=== PATIENT | female | born 1965 | race Caucasian/White ===

== ENCOUNTER 2023-01-04 06:47 | Outpatient (CLI) | payer OTHER, SELFPAY ==
[2023-01-04 07:15] LABS: Basophils Absolute Auto 0.1 K/mm3 (0.0-0.1); Basophils Percent Auto 0.7 % (0.2-1.2); Eosinophils Absolute Auto 0.3 K/mm3 (0-0.3); Eosinophils Percent Auto 2.8 % (0-4.4); Hematocrit 43.3 % (37.0-47.0); Hemoglobin 13.6 g/dL (12.0-15.0); Immature Granulocyte Absolute 0.08 K/mm3 (0.00-0.031); Immature Granulocyte Percent A 0.8 % (0-0.5); Lymphocytes Absolute Auto 2.87 K/mm3 (0.9-3.2); Lymphocytes Percent Auto 30.3 % (18.3-44.2); Mean Corpuscular HGB Conc 31.4 g/dl (32-36); Mean Corpuscular Hemoglobin 28.5 pg (26-34); Mean Corpuscular Volume 90.8 fl (80-100); Mean Platelet Volume 8.9 fl (7.4-10.4); Monocytes Absolute Auto 0.8 K/mm3 (0.1-0.6); Monocytes Percent Auto 8.9 % (2.6-8.5); Neutrophils Absolute Auto 5.4 K/mm3 (1.3-6.7); Neutrophils Percent Auto 56.5 % (45.5-73.1); Platelet Count Result 311 k/mm3 (150-375); Red Blood Count 4.77 M/mm3 (4.2-5.4); Red Cell Distribution Width 13.7 % (11.5-14.5); White Blood Count 9.5 K/mm3 (4.5-10.0)
[2023-01-04 07:16] LABS: Appearance Urine Clear (Clear); Bilirubin Urine Negative (Negative); Blood Urine Negative (Negative); Color Urine Yellow (Yellow); Glucose Urine UA Negative (Negative); Ketones Urine Negative (Negative); Leukocyte Esterase Ur Negative LEU/UL (Negative); Nitrate Urine Negative (Negative); Protein Urine Negative (Negative); Specific Grav Ur 1.011 (1.001-1.035); Urobilinogen Urine 0.2 mg/dL (<2.0); pH Urine 5.5 (5.0-9.0)
[2023-01-04 07:27] LABS: Alanine Aminotransferase 23 U/L (6-35); Albumin Level 4.3 g/dL (3.5-5.1); Alkaline Phosphatase 71 U/L (38-126); Anion Gap 8 mmol/L (8-16); Aspartate Amino Transferase 23 U/L (14-36); Bilirubin,Total 0.6 mg/dL (0.2-1.3); Blood Urea Nitrogen 13 mg/dL (7-17); Calcium 9.5 mg/dL (8.4-10.2); Carbon Dioxide 26 mmol/L (22-30); Chloride 105 mmol/L (98-107); Cholesterol 209 mg/dL (0-200); Estimated Glomerular Filt Rate > 60; Glucose 108 mg/dL (65-110); HDL Direct 44 mg/dL; Hemoglobin A1C 5.8 % (<5.7); Potassium 4.2 mmol/L (3.4-5.0); Sodium 139 mmol/L (137-145); Triglycerides 363 mg/dL (<150)
[2023-01-04 07:38] LABS: LDL Cholesterol Direct 98 mg/dL
[2023-01-04 07:44] LABS: Add Urine Microscopic? NO
[2023-01-04 08:30] LABS: Folic Acid 16.2 ng/mL (2.76->20)
== END 2023-01-04 06:48 | disposition home or self-care (01) ==
PROVIDERS: Visit Provider Physician Assistant
DX: E78.5 Hyperlipidemia, unspecified (principal); R73.03 Prediabetes; Z79.899 Other long term (current) drug therapy
CPT/HCPCS: 36415; 80053; 80061; 81003; 82607; 82746; 83036; 84443; 85025

== ENCOUNTER 2023-05-12 07:34 | Outpatient (CLI) | payer OTHER, SELFPAY ==
[2023-05-12 08:20] LABS: Basophils Absolute Auto 0.1 K/mm3 (0.0-0.1); Basophils Percent Auto 0.7 % (0.2-1.2); Eosinophils Absolute Auto 0.2 K/mm3 (0-0.3); Eosinophils Percent Auto 2.7 % (0-4.4); Hemoglobin 14.1 g/dL (12.0-15.0); Immature Granulocyte Absolute 0.07 K/mm3 (0.00-0.031); Immature Granulocyte Percent A 0.9 % (0-0.5); Lymphocytes Absolute Auto 2.14 K/mm3 (0.9-3.2); Lymphocytes Percent Auto 26.7 % (18.3-44.2); Mean Corpuscular HGB Conc 30.7 g/dl (32-36); Mean Corpuscular Hemoglobin 27.8 pg (26-34); Mean Corpuscular Volume 90.6 fl (80-100); Mean Platelet Volume 9.6 fl (7.4-10.4); Monocytes Absolute Auto 0.8 K/mm3 (0.1-0.6); Monocytes Percent Auto 9.5 % (2.6-8.5); Neutrophils Absolute Auto 4.8 K/mm3 (1.3-6.7); Neutrophils Percent Auto 59.5 % (45.5-73.1); Platelet Count Result 315 k/mm3 (150-375); Red Blood Count 5.08 M/mm3 (4.2-5.4); Red Cell Distribution Width 13.5 % (11.5-14.5)
[2023-05-12 08:29] LABS: Alanine Aminotransferase 23 U/L (6-35); Albumin Level 4.1 g/dL (3.5-5.1); Alkaline Phosphatase 92 U/L (38-126); Anion Gap 6 mmol/L (8-16); Aspartate Amino Transferase 24 U/L (14-36); Bilirubin,Total 0.4 mg/dL (0.2-1.3); Blood Urea Nitrogen 12 mg/dL (7-17); Calcium 9.6 mg/dL (8.4-10.2); Carbon Dioxide 26 mmol/L (22-30); Chloride 109 mmol/L (98-107); Cholesterol 252 mg/dL (0-200); Estimated Glomerular Filt Rate > 60; Glucose 104 mg/dL (65-110); HDL Direct 48 mg/dL; Potassium 4.3 mmol/L (3.4-5.0); Sodium 141 mmol/L (137-145); Triglycerides 256 mg/dL (<150)
[2023-05-12 08:43] LABS: LDL Cholesterol Direct 154 mg/dL
[2023-05-12 09:07] LABS: Hemoglobin A1C 6.1 % (<5.7)
[2023-05-12 09:38] LABS: Folic Acid 12.7 ng/mL (2.76->20)
== END 2023-05-12 07:35 | disposition home or self-care (01) ==
LOC: ANHLAB 07:37
PROVIDERS: PCP Physician Assistant; Visit Provider Physician Assistant
DX: E78.5 Hyperlipidemia, unspecified (principal); R73.03 Prediabetes; Z79.899 Other long term (current) drug therapy
CPT/HCPCS: 36415; 80053; 80061; 82607; 82746; 83036; 84439; 84443; 85025

== ENCOUNTER 2023-08-05 16:35 | Emergency (ER) | payer OTHER, SELFPAY ==
--- NOTE | ~2023-08-05 | XR_ITS ---
XR hand RT min 3V Ordering provider: Eddie Grant PA-C History: . 3rd MCP pain and swelling TO DORSAL 2ND, 3RD, AND 4TH . Comparison: None. FINDINGS: BONES: No acute fracture or dislocation. Small cystic area seen in the proximal metaphysis of the proximal phalanx of the second finger. Follo w-up advised. JOINT SPACES: Normal. SOFT TISSUES: Normal. IMPRESSION: No acute osseous abnormality right hand. Reviewed, dictated and finalized at location A.
[2023-08-05 17:12] VITALS: BP 124/75; PULSE 90; RESP 16; TEMP 36.1; O2SAT 97
--- NOTE | 2023-08-05 18:04 | ED.GENADULT ---
[facility] - General Adult General Chief complaint: Extremity Injury, Upper Stated complaint: hand/wrist injury Time Seen by Provider: 08/05/23 17:05 Source: patient Mode of arrival: ambulatory Limitations: no limitations History of Present Illness HPI narrative: this is a 57-year-old female who presents to the ED for chief complaint of right hand pain and swelling, specifically over the 3rd MCP. She reports that she had an injury last night In which she was trying to push herself up on the bed and injured the right hand. Patient reports swelling and pain, worse over the 3rd MCP. She has concern for the bone possibly moving. Denies numbness, weakness or any further sites of pain or injury. Related Data Home Medications Medication Instructions Recorded Confirmed cariprazine 1.5 mg capsule 3 mg PO DAILY 08/05/23 08/05/23 (Vraylar) fenofibrate micronized 134 mg 134 mg PO DAILY 08/05/23 08/05/23 capsule metformin 500 mg tablet 500 mg PO DAILY 08/05/23 08/05/23 rosuvastatin 40 mg tablet (Crestor) 40 mg PO DAILY 08/05/23 08/05/23 Allergies Allergy/AdvReac Type Severity Reaction Status Date / Time No Known Allergies Allergy Unverified 08/05/23 17:09 Review of Systems Review of Systems: All systems as dictated in [facility] Family History Family History Grandparent Acute myocardial infarction Mother Family history of hypothyroidism Father Family history of coronary artery disease Carcinoma of colon Acute myocardial infarction Social History Social History Smoking status: Current every day smoker Tobacco type: cigarettes and e-cigarettes/vaping Alcohol intake: current Substance use: never Exam Narrative: GENERAL: Well-appearing, well-nourished, and in no acute distress. HEAD: Normocephalic, atraumatic. EYES: PERRLA and EOMI. ENT: Nares clear, no rhinorrhea or epistaxis. Mucous membranes moist. Oropharynx without tonsillar hypertrophy exudate or other lesions. NECK: Supple. No adenopathy or masses. CHEST: No respiratory distress. Clear to auscultation. No wheezes rales or rhonchi HEART: Regular rate and rhythm. No murmur heard. Normal peripheral pulses. ABDOMEN: Soft, nontender, nondistended, normal active bowel sounds. MSK: Mild tenderness and swelling to the 3rd MCP dorsally. No warmth or redness. Nearly full range of motion actively. No deformity Neurovascularly intact distally. SKIN: Warm, dry, no rash. NEURO: Alert and oriented x3. No focal deficits. PSYCH: Normal mood and affect. Course Vital Signs Vital signs: Vital Signs Temperature 97.0 F L 08/05/23 17:12 Pulse Rate 90 08/05/23 17:12 Respiratory Rate 16 08/05/23 17:12 Blood Pressure 124/75 08/05/23 17:12 Pulse Oximetry 97 08/05/23 17:12 Oxygen Delivery Room Air 08/05/23 17:12 Temperature 97.2 F L 08/05/23 18:30 Pulse Rate 76 08/05/23 18:30 Respiratory Rate 16 08/05/23 18:30 Blood Pressure 135/83 08/05/23 18:30 Pulse Oximetry 97 08/05/23 18:30 Oxygen Delivery Room Air 08/05/23 17:12 Medical Decision Making MDM Narrative Medical decision making narrative: this is a 57-year-old female who presents to the ED for chief complaint of right hand pain after injury last night. Vitals are normal. Exam shows mild swelling and tenderness to the 3rd MCP. No deformity. Neurovascularly intact distally. X-ray show no acute findings. Symptoms consistent with musculoskeletal strain. Pt will be discharged in stable condition. Return precautions given and supportive measures discussed. Pt is understanding and agreeable with plan for discharge and follow-up with PCP. Vital Signs Vital Signs: Vital Signs Temperature 97.0 F L 08/05/23 17:12 Pulse Rate 90 08/05/23 17:12 Respiratory Rate 16 08/05/23 17:12 Blood Pressure 124/75 08/05/23 17:12
[2023-08-05 18:30] VITALS: BP 135/83; PULSE 76; RESP 16; TEMP 36.2; O2SAT 97
== END 2023-08-05 18:30 | disposition home or self-care (01) ==
PROVIDERS: Emergency Provider Physician Assistant; PCP Physician Assistant
DX: S66.911A Strain of unspecified muscle, fascia and tendon at wrist and hand level, right hand, initial encounter (principal); E11.9 Type 2 diabetes mellitus without complications; F41.9 Anxiety disorder, unspecified; F32.A Depression, unspecified; F17.210 Nicotine dependence, cigarettes, uncomplicated; F17.290 Nicotine dependence, other tobacco product, uncomplicated; Z79.84 Long term (current) use of oral hypoglycemic drugs; Z79.899 Other long term (current) drug therapy; X50.9XXA Other and unspecified overexertion or strenuous movements or postures, initial encounter
CPT/HCPCS: 73130; 99283

== ENCOUNTER 2023-10-16 07:05 | Outpatient (CLI) | payer OTHER, SELFPAY ==
[2023-10-16 07:29] LABS: Basophils Absolute Auto 0.1 K/mm3 (0.0-0.1); Basophils Percent Auto 0.6 % (0.2-1.2); Eosinophils Absolute Auto 0.2 K/mm3 (0-0.3); Eosinophils Percent Auto 1.6 % (0-4.4); Hematocrit 42.2 % (37.0-47.0); Hemoglobin 13.8 g/dL (12.0-15.0); Immature Granulocyte Absolute 0.05 K/mm3 (0.00-0.031); Immature Granulocyte Percent A 0.4 % (0-0.5); Lymphocytes Absolute Auto 2.88 K/mm3 (0.9-3.2); Lymphocytes Percent Auto 25.7 % (18.3-44.2); Mean Corpuscular HGB Conc 32.7 g/dl (32-36); Mean Corpuscular Volume 88.7 fl (80-100); Mean Platelet Volume 9.4 fl (7.4-10.4); Monocytes Percent Auto 9.3 % (2.6-8.5); Neutrophils Percent Auto 62.4 % (45.5-73.1); Platelet Count Result 299 k/mm3 (150-375); Red Blood Count 4.76 M/mm3 (4.2-5.4); White Blood Count 11.2 K/mm3 (4.5-10.0)
[2023-10-16 07:36] LABS: Hemoglobin A1C 6.1 % (<5.7)
[2023-10-16 07:39] LABS: Alanine Aminotransferase 25 U/L (6-35); Albumin Level 4.4 g/dL (3.5-5.1); Alkaline Phosphatase 82 U/L (38-126); Anion Gap 9 mmol/L (4-12); Aspartate Amino Transferase 27 U/L (14-36); Bilirubin,Total 0.5 mg/dL (0.2-1.3); Blood Urea Nitrogen 11 mg/dL (7-17); Calcium 9.6 mg/dL (8.4-10.2); Carbon Dioxide 27 mmol/L (22-30); Chloride 103 mmol/L (98-107); Cholesterol 169 mg/dL (0-200); Estimated Glomerular Filt Rate > 60; Glucose 99 mg/dL (65-110); HDL Direct 47 mg/dL; Potassium 3.9 mmol/L (3.4-5.0); Sodium 139 mmol/L (137-145); Triglycerides 130 mg/dL (<150)
[2023-10-16 07:51] LABS: LDL Cholesterol Direct 85 mg/dL
[2023-10-17 08:28] LABS: Insulin Level Total 13.3 uIU/mL
== END 2023-10-16 07:06 | disposition home or self-care (01) ==
PROVIDERS: PCP Physician Assistant; Visit Provider Physician Assistant
DX: E78.5 Hyperlipidemia, unspecified (principal); R73.03 Prediabetes; Z68.36 Body mass index [BMI] 36.0-36.9, adult; Z79.899 Other long term (current) drug therapy
CPT/HCPCS: 36415; 80053; 80061; 83036; 83525; 85025

== ENCOUNTER 2024-10-16 06:50 | Outpatient (CLI) | payer OTHER, SELFPAY ==
--- OUTSIDE RECORDS SUMMARY | 2024-10-16 06:55 | XMS_ITS ---
Author Organization [facility] Address [facility] [facility] [address] [place] [address] Care Team Providers [facility] [employer] Name Role Phone Amie Linares Primary Care Provider Breanna Pearson Unavailable [phone] REASON FOR VISIT 3 month f/u: R/S with Ct on 04/13/24 Social History Sex Assigned At : Social History Observation Description Sex Assigned At Female Encounters Encounter Location Date Provider Diagnosis [facility] [address] [facility] [address] [place] [address] 04/25/2024 Breanna Cali Plan Of Treatment No Information Progress Notes * KALI MAYDOB: [birth year] (58 yo F)Acc No.[id number]:04/25/2024 Patient: KLAI MCCLELLAND Provider: ELIANE BUTTERFIELD :1965 A ge:58 Y S ex:Female Date:04/25/2024 Address:[address] [place], [place] [id number] Pcp:Amie HARRELL Subjective: * Chief Complaints: * 1 . 3 month f/u: R/S with Ct on 04/13/24. * Medical History: Objective: * Vitals: Assessment: Plan: * Treatment: * Billing Information: * Visit Code: * Procedure Codes: * Electronic signature of ELIANE Mcbride on 10/16/2024 at 06:55 AM CDT Sign off status: Pending * Provider: Nini CALI PMHNP Date: 0 04/25/2024 Generated for Kwan Romeo/David on: 0 10/16/2024 06:55 AM CDT
--- OUTSIDE RECORDS SUMMARY | 2024-10-16 06:55 | XMS_ITS | Patient Health Record ---
Author Organization [facility] As rubberit Address [address] [facility] [address] [place] [address] Care Team Providers Care Investment Accountant Name Role Phone Amie Linares Primary Care Provider Breanna Pearson Unavailable [phone] Sanchez Aguilar Unavailable [phone] Allergies No Known Allergies Results Component Value Reference Range Notes UDT Reviewed date:10/26/2023 09:52:03 AM Interpretation: Performing Lab: Notes/Report: THC N 0 - 50 ng/ml Cocaine N 0 - 300 ng/ml Amphetamine N 0 - 1000 ng/ml Buprenorphine (BUP) N 0 - 10 ng/ml Secobarbital (Bar) N 0 - 300 ng/ml Oxazepam (BZO) N 0 - 300 ng/ml 6-jatpkmdpqg-5,9-jpkhfdmp-0, 3-dipheny lpyrrolidine (EDDP) N 0 - 300 ng/ml Methamphetamine (MET) N 0 - 1000 ng/ml Methylenedioxymethamphetamine (MDMA) N 0 - 500 ng/ml Morphine (MOP 300/VVY5207) N 0 - 300 ng/ml Methadone (MTD) N 0 - 300 ng/ml Phencyclidine (PCP) N 0 - 25 ng/ml Nortriptyline (TCA) N 0 - 1000 ng/ml Oxycodone N 0 - 300 ng/ml x N 0 - 300 ng/ml UDT Reviewed date:01/11/2024 05:08:37 PM Interpretation: Performing Lab: Notes/Report: THC n 0 - 50 ng/ml Cocaine n 0 - 300 ng/ml Amphetamine n 0 - 1000 ng/ml Buprenorphine (BUP) n 0 - 10 ng/ml Secobarbital (Bar) n 0 - 300 ng/ml Oxazepam (BZO) n 0 - 300 ng/ml 4-dbaajojzva-8,4-imklttxe-7, 3-dipheny lpyrrolidine (EDDP) n 0 - 300 ng/ml Methamphetamine (MET) n 0 - 1000 ng/ml Methylenedioxymethamphetamine (MDMA) n 0 - 500 ng/ml Morphine (MOP 300/NDN1226) n 0 - 300 ng/ml Methadone (MTD) n 0 - 300 ng/ml Phencyclidine (PCP) n 0 - 25 ng/ml Nortriptyline (TCA) n 0 - 1000 ng/ml Oxycodone n 0 - 300 ng/ml x n 0 - 300 ng/ml DRUG MONITOR, BENZO, QN, URI NE ([id number]) Reviewed date:11/12/2023 12:03:39 PM Interpretation: Performing Lab:[facility] [id number] [place] Rolando Wolf, Director - [id number] [facility] Notes/Report: ALL NEGATIVE FASTING: NO Alphahydroxyalprazolam NEGATIVE <25 ng/mL Alphahydroxymidazolam NEGATIVE <50 ng/mL Alphahydroxytriazolam NEGATIVE <50 ng/mL Aminoclonazepam NEGATIVE <25 ng/mL Hydroxyethylflurazepam NEGATIVE <50 ng/mL Lorazepam NEGATIVE <50 ng/mL Nordiazepam NEGATIVE <50 ng/mL Oxazepam NEGATIVE <50 ng/mL Temazepam NEGATIVE <50 ng/mL Benzodiazepines Comments See LDT Notes Notes and Comments This drug testing is for medical treatment only. Analysis was performed as non-forensic testing and these results should be used only by healthcare providers to render diagnosis or treatment, or to monitor progress of medical conditions. LDT Notes: Confirmation tests were developed and their analytical performance characteristics have been determined by [facility]. It has not been cleared or approved by the FDA. This assay has been validated pursuant to the CLIA regulations and is used for clinical purposes. Healthcare Providers needing Interpretation assistance, please contact us at [phone] ( ) M-F, 8am to 10pm EST DRUG MONITOR, BENZO, DavidBillSEAN ([id number]) Reviewed date:01/19/2024 09:57:19 AM Interpretation: Performing Lab:[facility], [facility] [id number] [facility]ector [id number] Rolando Wolf, Director - [id number] [facility] Notes/Report: FASTING: NO Alphahydroxyalprazolam NEGATIVE <25 ng/mL Alphahydroxymidazolam NEGATIVE <50 ng/mL Alphahydroxytriazolam NEGATIVE <50 ng/mL Aminoclonazepam NEGATIVE <25 ng/mL Hydroxyethylflurazepam NEGATIVE <50 ng/mL Lorazepam NEGATIVE <50 ng/mL Nordiazepam NEGATIVE <50 ng/mL Oxazepam NEGATIVE <50 ng/mL Temazepam NEGATIVE <50 ng/mL Benzodiazepines Comments See LDT Notes Notes and Comments This drug testing is for medical treatment only. Analysis was performed as non-forensic testing and these results should be used only by healthcare providers to render diagnosis or treatment, or to monitor progress of medical conditions. LDT Notes: Confirmation tests were developed and their analytical performance characteristics have been determined by [facility]. It has not been cleared or approved by the FDA. This assay has been validated pursuant to the CLIA regulations and is used for clinical purposes. Healthcare Providers needing Interpretation assistance, please contact us at [phone] ( ) M-F, 8am to 10pm EST Reason For Referral No Information Medications Medication SIG (Take, Route, Frequency, Duration) Notes Start Date End Date Status Crestor 40 MG Oral 07/15/2023 Activ e metFORMIN HCl ER 750 MG Oral 07/15/2023 Active hydrOXYzine HCl 25 MG Oral 07/15/2023 Not-Taking busPIRone HCl 7.5 MG Oral 07/15/2023 Not-Taking hydrOXYzine HCl 10 MG Oral 07/15/2023 Not-Taking LORazepam 0.5 MG 1 tablet Oral Once a day; Duration: 30 days 04/13/2024 Active Cariprazine HCl 3 MG 1 capsule Orally Once a day; Duration: 30 days Active Vraylar 3 MG 1 capsule Oral Once a day; Duration: 90 days no PA needed 11/26/2023 Active Trintellix 20 MG 1 tablet Oral Once a day; Duration: 30 days Active Rosuvastatin Calcium 20 MG Oral 07/15/2023 Active Fenofibrate Micronized 134 MG Oral 07/15/2023 Active Ondansetron 4 MG Oral 07/15/2023 Ac tive Social History Tobacco Use: Social History Observation Description Date Details (start date - stop date) Light tobacco s moker NA - NA Sex Assigned At : Social History Observation Description Sex Assigned At Female Tobacco Control (Standard) Question Answer Notes Tobacco use: Light tobacco smoker Problems Problem Type SNOMED Code ICD Code Onset Dates Problem Status W/U Status Risk Notes Problem Mild recurrent major depression (66077978) Major depressive disorder, recurrent, mild (F33.0) 3 Active confirmed Problem Generalized anxiety disorder (94770767) Generalized anxiety disorder (F41.1) 4 Active confirmed Problem Insomnia disorder related to another mental disorder (13604814) Insomnia due to other mental 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) 4 Active confirmed Problem Long-term current use of drug therapy (589226233) Other long-term (current) drug therapy (Z79.899) 4 Active confirmed Problem Elevated blood-pressure reading without diagnosis of hypertension (490874519) Elevated blood pressure reading (R03.0) Active confirmed Vital Signs Heart Rate 77 /min 01/11/2024 Height-cm 160.02 cm 01/11/2024 Blood pressure diastolic 77 mm Hg 01/11/2024 Weight-kg 83.46 kg 01/11/2024 Height 63.00 in 01/11/2024 Blood pressure systolic 131 mm Hg 01/11/2024 Weight 184 lbs 01/11/2024 BMI 32.59 kg/m2 01/11/2024 Encounters Encounter Location Date Provider Diagnosis [email or web address] [address] [facility] [address] [place] [address] 10/26/2023 Breanna Cali Major depressive disorder, recurrent, mild F33.0 ; Generalized anxiety disorder F41.1 ; Insomnia due to other mental disorder F51.05 and Other long-term (current) drug therapy Z79.899 [email or web address] [address] [facility] [address] [place] [address] 01/04/2024 Breanna Cali [facility] [employer] [address] [facility] [address] [place] [address] 01/11/2024 Breanna Thermora Generalized anxiety disorder F41.1 ; Major depressive disorder, recurrent, mild F33.0 ; Insomnia due to other mental disorder F51.05 ; Other magazine journalist (current) drug therapy Z79.899 and Elevated blood pressure reading R03.0 [facility] [address] [address] 04/13/2024 Sanchez Aguilar [place] [id number] [address] 04/13/2024 Breanna Thermora Generalized anxiety disorder F41.1 ; Major depressive disorder, recurrent, mild F33.0 ; Insomnia due to other mental disorder F51.05 and Other long-term (current) drug therapy Z79.899 [place] [address] [address] 07/11/2024 Breanna Thermora Generalized anxiety disorder F41.1 ; Major depressive disorder, recurrent, mild F33.0 ; Insomnia due to other mental disorder F51.05 ; Other magazine journalist (current) drug therapy Z79.899 and Nicotine use Z72.0 [facility] [address] [facility] [address] [address] 11/03/2023 Breanna Thermora Generalized anxiety disorder F41.1 [place] [address] [address] [facility] [address] [address] 04/13/2024 Breanna Thery [place] [address] [facility] [address] [address] 11/22/2023 Breanna Thermora Major depressive disorder, recurrent, mild F33.0 [place] [address] [address] 11/23/2023 Breanna Thery [place] [address] [address] [facility] [address] [address] 04/13/2024 Breanna Cali Assessments Encounter Date Diagnosis (ICD Code) Assessment Notes Treatment Notes Treatment Clinical Notes Section Notes 11/22/2023 Major depressive disorder, recurrent, mild (ICD-10 - F33.0) Electronic Prior Authorization was requested for Vraylar 3 MG Capsule. Provider can order medication once approval received. 11/03/2023 Generalized anxiety disorder (ICD-10 - F41.1) Electronic Prior Authorization was requested for Vraylar 3 MG Capsule. Provider can order medication once approval received. 07/11/2024 Generalized anxiety disorder (ICD-10 - F41.1) Generalized Anxiety Disorder: Care Instructions material was published, Learning About Generalized Anxiety Disorder material was published, Learning About Transcranial Magnetic Stimulation (TMS) material was published 1. depression - Educated and discuss Vraylar 3 mg daily in am for depression- samples been using tolerating well and helping depression refer to therapy for depression and anxiety- son passed 05/23 co-pay card given educated on all medications, benefits, side effects and risk, and educated on depression, anxiety, and mood d/o and educated on compliance of medications, metabolic and movement d/o education appointment's, continue therapy discussion with patient about course of treatmentand patient instructions. SSRI/SNRI side effects discussed including but not limited to, gastric upset, nausea, vomiting, diarrhea and/or constipation, weight changes, sexual side effects including loss of libido, increased suicidal thoughts/behaviors in children and young adults, and serotonin syndrome. Second generation antipsychotics (SGAs) have metabolic syndrome issues with weight gain, increase in prolactin, increased waist circumference, increased lipids, and increased glucose. Thus routine monitoring of weight, metabolic labs, etc. is indicated. A general rank ordering of antipsychotics that have the greatest to the least risk of metabolic effects is olanzapine, quetiapine, risperidone, ziprasidone, and aripiprazole. However, weight gain can occur with all of these drugs and considerable variability exists among patients receiving the same drug regarding the risk of metabolic effects. Anti-psychotic agents not only increase the risk of metabolic disorder, they also increase the risk of CVA, akathisia, and movement disorders including EPS or tardive dyskinesia (more common with first generation antipsychotics) and more. obtain labs PCP 2. Generalized anxiety disorder -trintellix 20 mg daily PCP prescribes hx Ativan and no control substance prescribed by FERN related to cannabis use - patient reported stopped Cannabis Ativan 0.5 mg as needed daily educated on short term use - reported not using often local pharmacy in [place] and no early refills on control substance Discussed and educated pt regarding benzodiazepines are generally not intended for prolonged use and that use can cause tolerance, dependence, depression, and associated memory issues including dementias (this list is not exhaustive). Benzodiazepine use is generally not recommended concurrently with pain medications and/or other controlled substances due to increased risks of profound sedation, respiratory depression, coma, and even . They are not to be used with any alcohol, as this combination can also be lethal. Patient was provided caution educated on Propranolol and Clonidine for anxiety educated on all rx Web Assistant's license form completed 3. Insomnia -sleep hygiene limit caffeine reported not taking Trazodone often 4. Long-term drug therapy Patient Instructions Medication Management and Follow-Up- Plan:- Schedule follow-up appointments every 2-3 months to monitor the patient's response to the medication regimen.- Reinforce the importance of avoiding recreational drug use due to potential neurotoxicity and interactions with prescribed medications. 10/26/2023 Major depressive disorder, recurrent, mild (ICD-10 - F33.0) Preventing Depression From Coming Back: Care Instructions material was published, Learning About Depression material was published, Learning About Depression Screening material was published, Seasonal Affective Disorder: Care Instructions material was published 1. recurrent major depression - Educated and discuss Vraylar 3 mg daily in am for depression-- tolerating well and helping depression refer to therapy for depression and anxiety and situation with son co-pay card given educated on all medications, benefits, side effects and risk, and educated on depression, anxiety, and mood d/o and educated on compliance of medications, metabolic and movement d/o education appointment's, continue therapy discussion with patient about course of treatmentand patient instructions. SSRI/SNRI side effects discussed including but not limited to, gastric upset, nausea, vomiting, diarrhea and/or constipation, weight changes, sexual side effects including loss of libido, increased suicidal thoughts/behaviors in children and young adults, and serotonin syndrome. Second generation antipsychotics (SGAs) have metabolic syndrome issues with weight gain, increase in prolactin, increased waist circumference, increased lipids, and increased glucose. Thus routine monitoring of weight, metabolic labs, etc. is indicated. A general rank ordering of antipsychotics that have the greatest to the least risk of metabolic effects is olanzapine, quetiapine, risperidone, ziprasidone, and aripiprazole. However, weight gain can occur with all of these drugs and considerable variability exists among patients receiving the same drug regarding the risk of metabolic effects. Anti-psychotic agents not only increase the risk of metabolic disorder, they also increase the risk of CVA, akathisia, and movement disorders including EPS or tardive dyskinesia (more common with first generation antipsychotics) and more. obtain labs PCP 2. Generalized anxiety disorder -trintellix 20 mg daily PCP prescribes hx Ativan and no control substance prescribed by FERN related to cannabis use - patient reported stopped Cannabis a 1 year ago will do UDS today and random and if positive no control substance by FERN Ativan 0.5 mg as needed daily educated on short term use - local pharmacy in [place] and no early refills on control substance- no refill needed Discussed and educated pt regarding benzodiazepines are generally not intended for prolonged use and that use can cause tolerance, dependence, depression, and associated memory issues including dementias (this list is not exhaustive). Benzodiazepine use is generally not recommended concurrently with pain medications and/or other controlled substances due to increased risks of profound sedation, respiratory depression, coma, and even . They are not to be used with any alcohol, as this combination can also be lethal. Patient was provided caution educated on Propranolol and Clonidine for anxiety educated on all rx Web Assistant's license form completed 3. Insomnia -sleep hygienelimit caffeine sleep educated on rx - Trazodone 100 mg at bedtime- patient started taking rx and helping- no refill needed today 4. Long-term drug therapy Patient Instructions Medication Management and Follow-Up- Plan:- Schedule follow-up appointments every 2-3 months to monitor the patient's response to the medication regimen.- Reinforce the importance of avoiding recreational drug use due to potential neurotoxicity and interactions with prescribed medications. 01/11/2024 Generalized anxiety disorder (ICD-10 - F41.1) Generalized Anxiety Disorder: Care Instructions material was published, Learning About Generalized Anxiety Disorder material was published, Learning About Transcranial Magnetic Stimulation (TMS) material was published 1. recurrent major depression - Educated and discuss Vraylar 3 mg daily in am for depression-- samples tolerating well and helping depression refer to therapy for depression and anxiety and situation with son co-pay card given educated on all medications, benefits, side effects and risk, and educated on depression, anxiety, and mood d/o and educated on compliance of medications, metabolic and movement d/o education appointment's, continue therapy discussion with patient about course of treatmentand patient instructions. SSRI/SNRI side effects discussed including but not limited to, gastric upset, nausea, vomiting, diarrhea and/or constipation, weight changes, sexual side effects including loss of libido, increased suicidal thoughts/behaviors in children and young adults, and serotonin syndrome. Second generation antipsychotics (SGAs) have metabolic syndrome issues with weight gain, increase in prolactin, increased waist circumference, increased lipids, and increased glucose. Thus routine monitoring of weight, metabolic labs, etc. is indicated. A general rank ordering of antipsychotics that have the greatest to the least risk of metabolic effects is olanzapine, quetiapine, risperidone, ziprasidone, and aripiprazole. However, weight gain can occur with all of these drugs and considerable variability exists among patients receiving the same drug regarding the risk of metabolic effects. Anti-psychotic agents not only increase the risk of metabolic disorder, they also increase the risk of CVA, akathisia, and movement disorders including EPS or tardive dyskinesia (more common with first generation antipsychotics) and more. obtain labs PCP 2. Generalized anxiety disorder -trintellix 20 mg daily PCP prescribes hx Ativan and no control substance prescribed by FERN related to cannabis use - patient reported stopped Cannabis will do UDS today and random and if positive no control substance by FERN Ativan 0.5 mg as needed daily educated on short term use - local pharmacy in [place] and no early refills on control substance Discussed and educated pt regarding benzodiazepines are generally not intended for prolonged use and that use can cause tolerance, dependence, depression, and associated memory issues including dementias (this list is not exhaustive). Benzodiazepine use is generally not recommended concurrently with pain medications and/or other controlled substances due to increased risks of profound sedation, respiratory depression, coma, and even . They are not to be used with any alcohol, as this combination can also be lethal. Patient was provided caution educated on Propranolol and Clonidine for anxiety educated on all rx Web Assistant's license form completed 3. Insomnia -sleep hygiene limit caffeine 4. Long-term drug therapy Patient Instructions Medication Management and Follow-Up- Plan:- Schedule follow-up appointments every 2-3 months to monitor the patient's response to the medication regimen.- Reinforce the importance of avoiding recreational drug use due to potential neurotoxicity and interactions with prescribed medications. 04/13/2024 Generalized anxiety disorder (ICD-10 - F41.1) Generalized Anxiety Disorder: Care Instructions material was published, Learning About Generalized Anxiety Disorder material was published, Learning About Transcranial Magnetic Stimulation (TMS) material was published 1. recurrent major depression - Educated and discuss Vraylar 3 mg daily in am for depression-- samples tolerating well and helping depression refer to therapy for depression and anxiety and situation with son co-pay card given educated on all medications, benefits, side effects and risk, and educated on depression, anxiety, and mood d/o and educated on compliance of medications, metabolic and movement d/o education appointment's, continue therapy discussion with patient about course of treatmentand patient instructions. SSRI/SNRI side effects discussed including but not limited to, gastric upset, nausea, vomiting, diarrhea and/or constipation, weight changes, sexual side effects including loss of libido, increased suicidal thoughts/behaviors in children and young adults, and serotonin syndrome. Second generation antipsychotics (SGAs) have metabolic syndrome issues with weight gain, increase in prolactin, increased waist circumference, increased lipids, and increased glucose. Thus routine monitoring of weight, metabolic labs, etc. is indicated. A general rank ordering of antipsychotics that have the greatest to the least risk of metabolic effects is olanzapine, quetiapine, risperidone, ziprasidone, and aripiprazole. However, weight gain can occur with all of these drugs and considerable variability exists among patients receiving the same drug regarding the risk of metabolic effects. Anti-psychotic agents not only increase the risk of metabolic disorder, they also increase the risk of CVA, akathisia, and movement disorders including EPS or tardive dyskinesia (more common with first generation antipsychotics) and more. obtain labs PCP 2. Generalized anxiety disorder -trintellix 20 mg daily PCP prescribes hx Ativan and no control substance prescribed by FERN related to cannabis use - patient reported stopped Cannabis will do UDS today and random and if positive no control substance by FERN Ativan 0.5 mg as needed daily educated on short term use - local pharmacy in [place] and no early refills on control substance Discussed and educated pt regarding benzodiazepines are generally not intended for prolonged use and that use can cause tolerance, dependence, depression, and associated memory issues including dementias (this list is not exhaustive). Benzodiazepine use is generally not recommended concurrently with pain medications and/or other controlled substances due to increased risks of profound sedation, respiratory depression, coma, and even . They are not to be used with any alcohol, as this combination can also be lethal. Patient was provided caution educated on Propranolol and Clonidine for anxiety educated on all rx Web Assistant's license form completed 3. Insomnia -sleep hygiene limit caffeine 4. Long-term drug therapy Patient Instructions Medication Management and Follow-Up- Plan:- Schedule follow-up appointments every 2-3 months to monitor the patient's response to the medication regimen.- Reinforce the importance of avoiding recreational drug use due to potential neurotoxicity and interactions with prescribed medications. 04/13/2024 Insomnia due to other mental disorder (ICD-10 - F51.05) 1. recurrent major depression - Educated and discuss Vraylar 3 mg daily in am for depression-- samples tolerating well and helping depression refer to therapy for depression and anxiety and situation with son co-pay card given educated on all medications, benefits, side effects and risk, and educated on depression, anxiety, and mood d/o and educated on compliance of medications, metabolic and movement d/o education appointment's, continue therapy discussion with patient about course of treatmentand patient instructions. SSRI/SNRI side effects discussed including but not limited to, gastric upset, nausea, vomiting, diarrhea and/or constipation, weight changes, sexual side effects including loss of libido, increased suicidal thoughts/behaviors in children and young adults, and serotonin syndrome. Second generation antipsychotics (SGAs) have metabolic syndrome issues with weight gain, increase in prolactin, increased waist circumference, increased lipids, and increased glucose. Thus routine monitoring of weight, metabolic labs, etc. is indicated. A general rank ordering of antipsychotics that have the greatest to the least risk of metabolic effects is olanzapine, quetiapine, risperidone, ziprasidone, and aripiprazole. However, weight gain can occur with all of these drugs and considerable variability exists among patients receiving the same drug regarding the risk of metabolic effects. Anti-psychotic agents not only increase the risk of metabolic disorder, they also increase the risk of CVA, akathisia, and movement disorders including EPS or tardive dyskinesia (more common with first generation antipsychotics) and more. obtain labs PCP 2. Generalized anxiety disorder -trintellix 20 mg daily PCP prescribes hx Ativan and no control substance prescribed by [facility] related to cannabis use - patient reported stopped Cannabis will do UDS today and random and if positive no control substance by [facility] Ativan 0.5 mg as needed daily educated on short term use - local pharmacy in [place] and no early refills on control substance Discussed and educated pt regarding benzodiazepines are generally not intended for prolonged use and that use can cause tolerance, dependence, depression, and associated memory issues including dementias (this list is not exhaustive). Benzodiazepine use is generally not recommended concurrently with pain medications and/or other controlled substances due to increased risks of profound sedation, respiratory depression, coma, and even . They are not to be used with any alcohol, as this combination can also be lethal. Patient was provided caution educated on Propranolol and Clonidine for anxiety educated on all rx [employer]'s license form completed 3. Insomnia -sleep hygiene limit caffeine 4. Long-term drug therapy Patient Instructions Medication Management and Follow-Up- Plan:- Schedule follow-up appointments every 2-3 months to monitor the patient's response to the medication regimen.- Reinforce the importance of avoiding recreational drug use due to potential neurotoxicity and interactions with prescribed medications. 01/11/2024 Major depressive disorder, recurrent, mild (ICD-10 - F33.0) Preventing Depression From Coming Back: Care Instructions material was published, Learning About Depression material was published, Learning About Depression Screening material was published, Seasonal Affective Disorder: Care Instructions material was published 1. recurrent major depression - Educated and discuss Vraylar 3 mg daily in am for depression-- samples tolerating well and helping depression refer to therapy for depression and anxiety and situation with son co-pay card given educated on all medications, benefits, side effects and risk, and educated on depression, anxiety, and mood d/o and educated on compliance of medications, metabolic and movement d/o education appointment's, continue therapy discussion with patient about course of treatmentand patient instructions. SSRI/SNRI side effects discussed including but not limited to, gastric upset, nausea, vomiting, diarrhea and/or constipation, weight changes, sexual side effects including loss of libido, increased suicidal thoughts/behaviors in children and young adults, and serotonin syndrome. Second generation antipsychotics (SGAs) have metabolic syndrome issues with weight gain, increase in prolactin, increased waist circumference, increased lipids, and increased glucose. Thus routine monitoring of weight, metabolic labs, etc. is indicated. A general rank ordering of antipsychotics that have the greatest to the least risk of metabolic effects is olanzapine, quetiapine, risperidone, ziprasidone, and aripiprazole. However, weight gain can occur with all of these drugs and considerable variability exists among patients receiving the same drug regarding the risk of metabolic effects. Anti-psychotic agents not only increase the risk of metabolic disorder, they also increase the risk of CVA, akathisia, and movement disorders including EPS or tardive dyskinesia (more common with first generation antipsychotics) and more. obtain labs PCP 2. Generalized anxiety disorder -trintellix 20 mg daily PCP prescribes hx Ativan and no control substance prescribed by [facility] related to cannabis use - patient reported stopped Cannabis will do UDS today and random and if positive no control substance by [facility] Ativan 0.5 mg as needed daily educated on short term use - local pharmacy in [place] and no early refills on control substance Discussed and educated pt regarding benzodiazepines are generally not intended for prolonged use and that use can cause tolerance, dependence, depression, and associated memory issues including dementias (this list is not exhaustive). Benzodiazepine use is generally not recommended concurrently with pain medications and/or other controlled substances due to increased risks of profound sedation, respiratory depression, coma, and even . They are not to be used with any alcohol, as this combination can also be lethal. Patient was provided caution educated on Propranolol and Clonidine for anxiety educated on all rx [employer]'s license form completed 3. Insomnia -sleep hygiene limit caffeine 4. Long-term drug therapy Patient Instructions Medication Management and Follow-Up- Plan:- Schedule follow-up appointments every 2-3 months to monitor the patient's response to the medication regimen.- Reinforce the importance of avoiding recreational drug use due to potential neurotoxicity and interactions with prescribed medications. 07/11/2024 Major depressive disorder, recurrent, mild (ICD-10 - F33.0) Preventing Depression From Coming Back: Care Instructions material was published, Learning About Depression material was published, Learning About Depression Screening material was published, Seasonal Affective Disorder: Care Instructions material was published 1. depression - Educated and discuss Vraylar 3 mg daily in am for depression- samples been using tolerating well and helping depression refer to therapy for depression and anxiety- son passed 05/23 co-pay card given educated on all medications, benefits, side effects and risk, and educated on depression, anxiety, and mood d/o and educated on compliance of medications, metabolic and movement d/o education appointment's, continue therapy discussion with patient about course of treatmentand patient instructions. SSRI/SNRI side effects discussed including but not limited to, gastric upset, nausea, vomiting, diarrhea and/or constipation, weight changes, sexual side effects including loss of libido, increased suicidal thoughts/behaviors in children and young adults, and serotonin syndrome. Second generation antipsychotics (SGAs) have metabolic syndrome issues with weight gain, increase in prolactin, increased waist circumference, increased lipids, and increased glucose. Thus routine monitoring of weight, metabolic labs, etc. is indicated. A general rank ordering of antipsychotics that have the greatest to the least risk of metabolic effects is olanzapine, quetiapine, risperidone, ziprasidone, and aripiprazole. However, weight gain can occur with all of these drugs and considerable variability exists among patients receiving the same drug regarding the risk of metabolic effects. Anti-psychotic agents not only increase the risk of metabolic disorder, they also increase the risk of CVA, akathisia, and movement disorders including EPS or tardive dyskinesia (more common with first generation antipsychotics) and more. obtain labs PCP 2. Generalized anxiety disorder -trintellix 20 mg daily PCP prescribes hx Ativan and no control substance prescribed by [facility] related to cannabis use - patient reported stopped Cannabis Ativan 0.5 mg as needed daily educated on short term use - reported not using often local pharmacy in [place] and no early refills on control substance Discussed and educated pt regarding benzodiazepines are generally not intended for prolonged use and that use can cause tolerance, dependence, depression, and associated memory issues including dementias (this list is not exhaustive). Benzodiazepine use is generally not recommended concurrently with pain medications and/or other controlled substances due to increased risks of profound sedation, respiratory depression, coma, and even . They are not to be used with any alcohol, as this combination can also be lethal. Patient was provided caution educated on Propranolol and Clonidine for anxiety educated on all rx [employer]'s license form completed 3. Insomnia -sleep hygiene limit caffeine reported not taking Trazodone often 4. Long-term drug therapy Patient Instructions Medication Management and Follow-Up- Plan:- Schedule follow-up appointments every 2-3 months to monitor the patient's response to the medication regimen.- Reinforce the importance of avoiding recreational drug use due to potential neurotoxicity and interactions with prescribed medications. 01/11/2024 Insomnia due to other mental disorder (ICD-10 - F51.05) 1. recurrent major depression - Educated and discuss Vraylar 3 mg daily in am for depression-- samples tolerating well and helping depression refer to therapy for depression and anxiety and situation with son co-pay card given educated on all medications, benefits, side effects and risk, and educated on depression, anxiety, and mood d/o and educated on compliance of medications, metabolic and movement d/o education appointment's, continue therapy discussion with patient about course of treatmentand patient instructions. SSRI/SNRI side effects discussed including but not limited to, gastric upset, nausea, vomiting, diarrhea and/or constipation, weight changes, sexual side effects including loss of libido, increased suicidal thoughts/behaviors in children and young adults, and serotonin syndrome. Second generation antipsychotics (SGAs) have metabolic syndrome issues with weight gain, increase in prolactin, increased waist circumference, increased lipids, and increased glucose. Thus routine monitoring of weight, metabolic labs, etc. is indicated. A general rank ordering of antipsychotics that have the greatest to the least risk of metabolic effects is olanzapine, quetiapine, risperidone, ziprasidone, and aripiprazole. However, weight gain can occur with all of these drugs and considerable variability exists among patients receiving the same drug regarding the risk of metabolic effects. Anti-psychotic agents not only increase the risk of metabolic disorder, they also increase the risk of CVA, akathisia, and movement disorders including EPS or tardive dyskinesia (more common with first generation antipsychotics) and more. obtain labs PCP 2. Generalized anxiety disorder -trintellix 20 mg daily PCP prescribes hx Ativan and no control substance prescribed by [facility] related to cannabis use - patient reported stopped Cannabis will do UDS today and random and if positive no control substance by [facility] Ativan 0.5 mg as needed daily educated on short term use - local pharmacy in [place] and no early refills on control substance Discussed and educated pt regarding benzodiazepines are generally not intended for prolonged use and that use can cause tolerance, dependence, depression, and associated memory issues including dementias (this list is not exhaustive). Benzodiazepine use is generally not recommended concurrently with pain medications and/or other controlled substances due to increased risks of profound sedation, respiratory depression, coma, and even . They are not to be used with any alcohol, as this combination can also be lethal. Patient was provided caution educated on Propranolol and Clonidine for anxiety educated on all rx [employer]'s license form completed 3. Insomnia -sleep hygiene limit caffeine 4. Long-term drug therapy Patient Instructions Medication Management and Follow-Up- Plan:- Schedule follow-up appointments every 2-3 months to monitor the patient's response to the medication regimen.- Reinforce the importance of avoiding recreational drug use due to potential neurotoxicity and interactions with prescribed medications. 10/26/2023 Generalized anxiety disorder (ICD-10 - F41.1) Generalized Anxiety Disorder: Care Instructions material was published, Learning About Generalized Anxiety Disorder material was published, Learning About Transcranial Magnetic Stimulation (TMS) material was published 1. recurrent major depression - Educated and discuss Vraylar 3 mg daily in am for depression-- tolerating well and helping depression refer to therapy for depression and anxiety and situation with son co-pay card given educated on all medications, benefits, side effects and risk, and educated on depression, anxiety, and mood d/o and educated on compliance of medications, metabolic and movement d/o education appointment's, continue therapy discussion with patient about course of treatmentand patient instructions. SSRI/SNRI side effects discussed including but not limited to, gastric upset, nausea, vomiting, diarrhea and/or constipation, weight changes, sexual side effects including loss of libido, increased suicidal thoughts/behaviors in children and young adults, and serotonin syndrome. Second generation antipsychotics (SGAs) have metabolic syndrome issues with weight gain, increase in prolactin, increased waist circumference, increased lipids, and increased glucose. Thus routine monitoring of weight, metabolic labs, etc. is indicated. A general rank ordering of antipsychotics that have the greatest to the least risk of metabolic effects is olanzapine, quetiapine, risperidone, ziprasidone, and aripiprazole. However, weight gain can occur with all of these drugs and considerable variability exists among patients receiving the same drug regarding the risk of metabolic effects. Anti-psychotic agents not only increase the risk of metabolic disorder, they also increase the risk of CVA, akathisia, and movement disorders including EPS or tardive dyskinesia (more common with first generation antipsychotics) and more. obtain labs PCP 2. Generalized anxiety disorder -trintellix 20 mg daily PCP prescribes hx Ativan and no control substance prescribed by [facility] related to cannabis use - patient reported stopped Cannabis a 1 year ago will do UDS today and random and if positive no control substance by [facility] Ativan 0.5 mg as needed daily educated on short term use - local pharmacy in [place] and no early refills on control substance- no refill needed Discussed and educated pt regarding benzodiazepines are generally not intended for prolonged use and that use can cause tolerance, dependence, depression, and associated memory issues including dementias (this list is not exhaustive). Benzodiazepine use is generally not recommended concurrently with pain medications and/or other controlled substances due to increased risks of profound sedation, respiratory depression, coma, and even . They are not to be used with any alcohol, as this combination can also be lethal. Patient was provided caution educated on Propranolol and Clonidine for anxiety educated on all rx [employer]'s license form completed 3. Insomnia -sleep hygienelimit caffeine sleep educated on rx - Trazodone 100 mg at bedtime- patient started taking rx and helping- no refill needed today 4. Long-term drug therapy Patient Instructions Medication Management and Follow-Up- Plan:- Schedule follow-up appointments every 2-3 months to monitor the patient's response to the medication regimen.- Reinforce the importance of avoiding recreational drug use due to potential neurotoxicity and interactions with prescribed medications. 04/13/2024 Major depressive disorder, recurrent, mild (ICD-10 - F33.0) Preventing Depression From Coming Back: Care Instructions material was published, Learning About Depression material was published, Learning About Depression Screening material was published, Seasonal Affective Disorder: Care Instructions material was published 1. recurrent major depression - Educated and discuss Vraylar 3 mg daily in am for depression-- samples tolerating well and helping depression refer to therapy for depression and anxiety and situation with son co-pay card given educated on all medications, benefits, side effects and risk, and educated on depression, anxiety, and mood d/o and educated on compliance of medications, metabolic and movement d/o education appointment's, continue therapy discussion with patient about course of treatmentand patient instructions. SSRI/SNRI side effects discussed including but not limited to, gastric upset, nausea, vomiting, diarrhea and/or constipation, weight changes, sexual side effects including loss of libido, increased suicidal thoughts/behaviors in children and young adults, and serotonin syndrome. Second generation antipsychotics (SGAs) have metabolic syndrome issues with weight gain, increase in prolactin, increased waist circumference, increased lipids, and increased glucose. Thus routine monitoring of weight, metabolic labs, etc. is indicated. A general rank ordering of antipsychotics that have the greatest to the least risk of metabolic effects is olanzapine, quetiapine, risperidone, ziprasidone, and aripiprazole. However, weight gain can occur with all of these drugs and considerable variability exists among patients receiving the same drug regarding the risk of metabolic effects. Anti-psychotic agents not only increase the risk of metabolic disorder, they also increase the risk of CVA, akathisia, and movement disorders including EPS or tardive dyskinesia (more common with first generation antipsychotics) and more. obtain labs PCP 2. Generalized anxiety disorder -trintellix 20 mg daily PCP prescribes hx Ativan and no control substance prescribed by [facility] related to cannabis use - patient reported stopped Cannabis will do UDS today and random and if positive no control substance by [facility] Ativan 0.5 mg as needed daily educated on short term use - local pharmacy in [place] and no early refills on control substance Discussed and educated pt regarding benzodiazepines are generally not intended for prolonged use and that use can cause tolerance, dependence, depression, and associated memory issues including dementias (this list is not exhaustive). Benzodiazepine use is generally not recommended concurrently with pain medications and/or other controlled substances due to increased risks of profound sedation, respiratory depression, coma, and even . They are not to be used with any alcohol, as this combination can also be lethal. Patient was provided caution educated on Propranolol and Clonidine for anxiety educated on all rx [employer]'s license form completed 3. Insomnia -sleep hygiene limit caffeine 4. Long-term drug therapy Patient Instructions Medication Management and Follow-Up- Plan:- Schedule follow-up appointments every 2-3 months to monitor the patient's response to the medication regimen.- Reinforce the importance of avoiding recreational drug use due to potential neurotoxicity and interactions with prescribed medications. 07/11/2024 Insomnia due to other mental disorder (ICD-10 - F51.05) 1. depression - Educated and discuss Vraylar 3 mg daily in am for depression- samples been using tolerating well and helping depression refer to therapy for depression and anxiety- son passed 05/23 co-pay card given educated on all medications, benefits, side effects and risk, and educated on depression, anxiety, and mood d/o and educated on compliance of medications, metabolic and movement d/o education appointment's, continue therapy discussion with patient about course of treatmentand patient instructions. SSRI/SNRI side effects discussed including but not limited to, gastric upset, nausea, vomiting, diarrhea and/or constipation, weight changes, sexual side effects including loss of libido, increased suicidal thoughts/behaviors in children and young adults, and serotonin syndrome. Second generation antipsychotics (SGAs) have metabolic syndrome issues with weight gain, increase in prolactin, increased waist circumference, increased lipids, and increased glucose. Thus routine monitoring of weight, metabolic labs, etc. is indicated. A general rank ordering of antipsychotics that have the greatest to the least risk of metabolic effects is olanzapine, quetiapine, risperidone, ziprasidone, and aripiprazole. However, weight gain can occur with all of these drugs and considerable variability exists among patients receiving the same drug regarding the risk of metabolic effects. Anti-psychotic agents not only increase the risk of metabolic disorder, they also increase the risk of CVA, akathisia, and movement disorders including EPS or tardive dyskinesia (more common with first generation antipsychotics) and more. obtain labs PCP 2. Generalized anxiety disorder -trintellix 20 mg daily PCP prescribes hx Ativan and no control substance prescribed by [facility] related to cannabis use - patient reported stopped Cannabis Ativan 0.5 mg as needed daily educated on short term use - reported not using often local pharmacy in [place] and no early refills on control substance Discussed and educated pt regarding benzodiazepines are generally not intended for prolonged use and that use can cause tolerance, dependence, depression, and associated memory issues including dementias (this list is not exhaustive). Benzodiazepine use is generally not recommended concurrently with pain medications and/or other controlled substances due to increased risks of profound sedation, respiratory depression, coma, and even . They are not to be used with any alcohol, as this combination can also be lethal. Patient was provided caution educated on Propranolol and Clonidine for anxiety educated on all rx [employer]'s license form completed 3. Insomnia -sleep hygiene limit caffeine reported not taking Trazodone often 4. Long-term drug therapy Patient Instructions Medication Management and Follow-Up- Plan:- Schedule follow-up appointments every 2-3 months to monitor the patient's response to the medication regimen.- Reinforce the importance of avoiding recreational drug use due to potential neurotoxicity and interactions with prescribed medications. 10/26/2023 Insomnia due to other mental disorder (ICD-10 - F51.05) 1. recurrent major depression - Educated and discuss Vraylar 3 mg daily in am for depression-- tolerating well and helping depression refer to therapy for depression and anxiety and situation with son co-pay card given educated on all medications, benefits, side effects and risk, and educated on depression, anxiety, and mood d/o and educated on compliance of medications, metabolic and movement d/o education appointment's, continue therapy discussion with patient about course of treatmentand patient instructions. SSRI/SNRI side effects discussed including but not limited to, gastric upset, nausea, vomiting, diarrhea and/or constipation, weight changes, sexual side effects including loss of libido, increased suicidal thoughts/behaviors in children and young adults, and serotonin syndrome. Second generation antipsychotics (SGAs) have metabolic syndrome issues with weight gain, increase in prolactin, increased waist circumference, increased lipids, and increased glucose. Thus routine monitoring of weight, metabolic labs, etc. is indicated. A general rank ordering of antipsychotics that have the greatest to the least risk of metabolic effects is olanzapine, quetiapine, risperidone, ziprasidone, and aripiprazole. However, weight gain can occur with all of these drugs and considerable variability exists among patients receiving the same drug regarding the risk of metabolic effects. Anti-psychotic agents not only increase the risk of metabolic disorder, they also increase the risk of CVA, akathisia, and movement disorders including EPS or tardive dyskinesia (more common with first generation antipsychotics) and more. obtain labs PCP 2. Generalized anxiety disorder -trintellix 20 mg daily PCP prescribes hx Ativan and no control substance prescribed by [facility] related to cannabis use - patient reported stopped Cannabis a 1 year ago will do UDS today and random and if positive no control substance by [facility] Ativan 0.5 mg as needed daily educated on short term use - local pharmacy in [place] and no early refills on control substance- no refill needed Discussed and educated pt regarding benzodiazepines are generally not intended for prolonged use and that use can cause tolerance, dependence, depression, and associated memory issues including dementias (this list is not exhaustive). Benzodiazepine use is generally not recommended concurrently with pain medications and/or other controlled substances due to increased risks of profound sedation, respiratory depression, coma, and even . They are not to be used with any alcohol, as this combination can also be lethal. Patient was provided caution educated on Propranolol and Clonidine for anxiety educated on all rx Web Assistant's license form completed 3. Insomnia -sleep hygienelimit caffeine sleep educated on rx - Trazodone 100 mg at bedtime- patient started taking rx and helping- no refill needed today 4. Long-term drug therapy Patient Instructions Medication Management and Follow-Up- Plan:- Schedule follow-up appointments every 2-3 months to monitor the patient's response to the medication regimen.- Reinforce the importance of avoiding recreational drug use due to potential neurotoxicity and interactions with prescribed medications. 01/11/2024 Other long-term (current) drug therapy (ICD-10 - Z79.899) Medication Refill: Care Instructions material was published 1. recurrent major depression - Educated and discuss Vraylar 3 mg daily in am for depression-- samples tolerating well and helping depression refer to therapy for depression and anxiety and situation with son co-pay card given educated on all medications, benefits, side effects and risk, and educated on depression, anxiety, and mood d/o and educated on compliance of medications, metabolic and movement d/o education appointment's, continue therapy discussion with patient about course of treatmentand patient instructions. SSRI/SNRI side effects discussed including but not limited to, gastric upset, nausea, vomiting, diarrhea and/or constipation, weight changes, sexual side effects including loss of libido, increased suicidal thoughts/behaviors in children and young adults, and serotonin syndrome. Second generation antipsychotics (SGAs) have metabolic syndrome issues with weight gain, increase in prolactin, increased waist circumference, increased lipids, and increased glucose. Thus routine monitoring of weight, metabolic labs, etc. is indicated. A general rank ordering of antipsychotics that have the greatest to the least risk of metabolic effects is olanzapine, quetiapine, risperidone, ziprasidone, and aripiprazole. However, weight gain can occur with all of these drugs and considerable variability exists among patients receiving the same drug regarding the risk of metabolic effects. Anti-psychotic agents not only increase the risk of metabolic disorder, they also increase the risk of CVA, akathisia, and movement disorders including EPS or tardive dyskinesia (more common with first generation antipsychotics) and more. obtain labs PCP 2. Generalized anxiety disorder -trintellix 20 mg daily PCP prescribes hx Ativan and no control substance prescribed by [facility] related to cannabis use - patient reported stopped Cannabis will do UDS today and random and if positive no control substance by [facility] Ativan 0.5 mg as needed daily educated on short term use - local pharmacy in [place] and no early refills on control substance Discussed and educated pt regarding benzodiazepines are generally not intended for prolonged use and that use can cause tolerance, dependence, depression, and associated memory issues including dementias (this list is not exhaustive). Benzodiazepine use is generally not recommended concurrently with pain medications and/or other controlled substances due to increased risks of profound sedation, respiratory depression, coma, and even . They are not to be used with any alcohol, as this combination can also be lethal. Patient was provided caution educated on Propranolol and Clonidine for anxiety educated on all rx Web Assistant's license form completed 3. Insomnia -sleep hygiene limit caffeine 4. Long-term drug therapy Patient Instructions Medication Management and Follow-Up- Plan:- Schedule follow-up appointments every 2-3 months to monitor the patient's response to the medication regimen.- Reinforce the importance of avoiding recreational drug use due to potential neurotoxicity and interactions with prescribed medications. 04/13/2024 Other long-term (current) drug therapy (ICD-10 - Z79.899) Medication Refill: Care Instructions material was published 1. recurrent major depression - Educated and discuss Vraylar 3 mg daily in am for depression-- samples tolerating well and helping depression refer to therapy for depression and anxiety and situation with son co-pay card given educated on all medications, benefits, side effects and risk, and educated on depression, anxiety, and mood d/o and educated on compliance of medications, metabolic and movement d/o education appointment's, continue therapy discussion with patient about course of treatmentand patient instructions. SSRI/SNRI side effects discussed including but not limited to, gastric upset, nausea, vomiting, diarrhea and/or constipation, weight changes, sexual side effects including loss of libido, increased suicidal thoughts/behaviors in children and young adults, and serotonin syndrome. Second generation antipsychotics (SGAs) have metabolic syndrome issues with weight gain, increase in prolactin, increased waist circumference, increased lipids, and increased glucose. Thus routine monitoring of weight, metabolic labs, etc. is indicated. A general rank ordering of antipsychotics that have the greatest to the least risk of metabolic effects is olanzapine, quetiapine, risperidone, ziprasidone, and aripiprazole. However, weight gain can occur with all of these drugs and considerable variability exists among patients receiving the same drug regarding the risk of metabolic effects. Anti-psychotic agents not only increase the risk of metabolic disorder, they also increase the risk of CVA, akathisia, and movement disorders including EPS or tardive dyskinesia (more common with first generation antipsychotics) and more. obtain labs PCP 2. Generalized anxiety disorder -trintellix 20 mg daily PCP prescribes hx Ativan and no control substance prescribed by [facility] related to cannabis use - patient reported stopped Cannabis will do UDS today and random and if positive no control substance by [facility] Ativan 0.5 mg as needed daily educated on short term use - local pharmacy in [place] and no early refills on control substance Discussed and educated pt regarding benzodiazepines are generally not intended for prolonged use and that use can cause tolerance, dependence, depression, and associated memory issues including dementias (this list is not exhaustive). Benzodiazepine use is generally not recommended concurrently with pain medications and/or other controlled substances due to increased risks of profound sedation, respiratory depression, coma, and even . They are not to be used with any alcohol, as this combination can also be lethal. Patient was provided caution educated on Propranolol and Clonidine for anxiety educated on all rx Web Assistant's license form completed 3. Insomnia -sleep hygiene limit caffeine 4. Long-term drug therapy Patient Instructions Medication Management and Follow-Up- Plan:- Schedule follow-up appointments every 2-3 months to monitor the patient's response to the medication regimen.- Reinforce the importance of avoiding recreational drug use due to potential neurotoxicity and interactions with prescribed medications. 01/11/2024 Elevated blood pressure reading (ICD-10 - R03.0) 1. recurrent major depression - Educated and discuss Vraylar 3 mg daily in am for depression-- samples tolerating well and helping depression refer to therapy for depression and anxiety and situation with son co-pay card given educated on all medications, benefits, side effects and risk, and educated on depression, anxiety, and mood d/o and educated on compliance of medications, metabolic and movement d/o education appointment's, continue therapy discussion with patient about course of treatmentand patient instructions. SSRI/SNRI side effects discussed including but not limited to, gastric upset, nausea, vomiting, diarrhea and/or constipation, weight changes, sexual side effects including loss of libido, increased suicidal thoughts/behaviors in children and young adults, and serotonin syndrome. Second generation antipsychotics (SGAs) have metabolic syndrome issues with weight gain, increase in prolactin, increased waist circumference, increased lipids, and increased glucose. Thus routine monitoring of weight, metabolic labs, etc. is indicated. A general rank ordering of antipsychotics that have the greatest to the least risk of metabolic effects is olanzapine, quetiapine, risperidone, ziprasidone, and aripiprazole. However, weight gain can occur with all of these drugs and considerable variability exists among patients receiving the same drug regarding the risk of metabolic effects. Anti-psychotic agents not only increase the risk of metabolic disorder, they also increase the risk of CVA, akathisia, and movement disorders including EPS or tardive dyskinesia (more common with first generation antipsychotics) and more. obtain labs PCP 2. Generalized anxiety disorder -trintellix 20 mg daily PCP prescribes hx Ativan and no control substance prescribed by [facility] related to cannabis use - patient reported stopped Cannabis will do UDS today and random and if positive no control substance by [facility] Ativan 0.5 mg as needed daily educated on short term use - local pharmacy in [place] and no early refills on control substance Discussed and educated pt regarding benzodiazepines are generally not intended for prolonged use and that use can cause tolerance, dependence, depression, and associated memory issues including dementias (this list is not exhaustive). Benzodiazepine use is generally not recommended concurrently with pain medications and/or other controlled substances due to increased risks of profound sedation, respiratory depression, coma, and even . They are not to be used with any alcohol, as this combination can also be lethal. Patient was provided caution educated on Propranolol and Clonidine for anxiety educated on all rx Web Assistant's license form completed 3. Insomnia -sleep hygiene limit caffeine 4. Long-term drug therapy Patient Instructions Medication Management and Follow-Up- Plan:- Schedule follow-up appointments every 2-3 months to monitor the patient's response to the medication regimen.- Reinforce the importance of avoiding recreational drug use due to potential neurotoxicity and interactions with prescribed medications. 10/26/2023 Other magazine journalist (current) drug therapy (ICD-10 - Z79.899) Medication Refill: Care Instructions material was published 1. recurrent major depression - Educated and discuss Vraylar 3 mg daily in am for depression-- tolerating well and helping depression refer to therapy for depression and anxiety and situation with son co-pay card given educated on all medications, benefits, side effects and risk, and educated on depression, anxiety, and mood d/o and educated on compliance of medications, metabolic and movement d/o education appointment's, continue therapy discussion with patient about course of treatmentand patient instructions. SSRI/SNRI side effects discussed including but not limited to, gastric upset, nausea, vomiting, diarrhea and/or constipation, weight changes, sexual side effects including loss of libido, increased suicidal thoughts/behaviors in children and young adults, and serotonin syndrome. Second generation antipsychotics (SGAs) have metabolic syndrome issues with weight gain, increase in prolactin, increased waist circumference, increased lipids, and increased glucose. Thus routine monitoring of weight, metabolic labs, etc. is indicated. A general rank ordering of antipsychotics that have the greatest to the least risk of metabolic effects is olanzapine, quetiapine, risperidone, ziprasidone, and aripiprazole. However, weight gain can occur with all of these drugs and considerable variability exists among patients receiving the same drug regarding the risk of metabolic effects. Anti-psychotic agents not only increase the risk of metabolic disorder, they also increase the risk of CVA, akathisia, and movement disorders including EPS or tardive dyskinesia (more common with first generation antipsychotics) and more. obtain labs PCP 2. Generalized anxiety disorder -trintellix 20 mg daily PCP prescribes hx Ativan and no control substance prescribed by [facility] related to cannabis use - patient reported stopped Cannabis a 1 year ago will do UDS today and random and if positive no control substance by [facility] Ativan 0.5 mg as needed daily educated on short term use - local pharmacy in [place] and no early refills on control substance- no refill needed Discussed and educated pt regarding benzodiazepines are generally not intended for prolonged use and that use can cause tolerance, dependence, depression, and associated memory issues including dementias (this list is not exhaustive). Benzodiazepine use is generally not recommended concurrently with pain medications and/or other controlled substances due to increased risks of profound sedation, respiratory depression, coma, and even . They are not to be used with any alcohol, as this combination can also be lethal. Patient was provided caution educated on Propranolol and Clonidine for anxiety educated on all rx Web Assistant's license form completed 3. Insomnia -sleep hygienelimit caffeine sleep educated on rx - Trazodone 100 mg at bedtime- patient started taking rx and helping- no refill needed today 4. Long-term drug therapy Patient Instructions Medication Management and Follow-Up- Plan:- Schedule follow-up appointments every 2-3 months to monitor the patient's response to the medication regimen.- Reinforce the importance of avoiding recreational drug use due to potential neurotoxicity and interactions with prescribed medications. 07/11/2024 Other magazine journalist (current) drug therapy (ICD-10 - Z79.899) Medication Refill: Care Instructions material was published 1. depression - Educated and discuss Vraylar 3 mg daily in am for depression- samples been using tolerating well and helping depression refer to therapy for depression and anxiety- son passed 05/23 co-pay card given educated on all medications, benefits, side effects and risk, and educated on depression, anxiety, and mood d/o and educated on compliance of medications, metabolic and movement d/o education appointment's, continue therapy discussion with patient about course of treatmentand patient instructions. SSRI/SNRI side effects discussed including but not limited to, gastric upset, nausea, vomiting, diarrhea and/or constipation, weight changes, sexual side effects including loss of libido, increased suicidal thoughts/behaviors in children and young adults, and serotonin syndrome. Second generation antipsychotics (SGAs) have metabolic syndrome issues with weight gain, increase in prolactin, increased waist circumference, increased lipids, and increased glucose. Thus routine monitoring of weight, metabolic labs, etc. is indicated. A general rank ordering of antipsychotics that have the greatest to the least risk of metabolic effects is olanzapine, quetiapine, risperidone, ziprasidone, and aripiprazole. However, weight gain can occur with all of these drugs and considerable variability exists among patients receiving the same drug regarding the risk of metabolic effects. Anti-psychotic agents not only increase the risk of metabolic disorder, they also increase the risk of CVA, akathisia, and movement disorders including EPS or tardive dyskinesia (more common with first generation antipsychotics) and more. obtain labs PCP 2. Generalized anxiety disorder -trintellix 20 mg daily PCP prescribes hx Ativan and no control substance prescribed by [facility] related to cannabis use - patient reported stopped Cannabis Ativan 0.5 mg as needed daily educated on short term use - reported not using often local pharmacy in [place] and no early refills on control substance Discussed and educated pt regarding benzodiazepines are generally not intended for prolonged use and that use can cause tolerance, dependence, depression, and associated memory issues including dementias (this list is not exhaustive). Benzodiazepine use is generally not recommended concurrently with pain medications and/or other controlled substances due to increased risks of profound sedation, respiratory depression, coma, and even . They are not to be used with any alcohol, as this combination can also be lethal. Patient was provided caution educated on Propranolol and Clonidine for anxiety educated on all rx Web Assistant's license form completed 3. Insomnia -sleep hygiene limit caffeine reported not taking Trazodone often 4. Long-term drug therapy Patient Instructions Medication Management and Follow-Up- Plan:- Schedule follow-up appointments every 2-3 months to monitor the patient's response to the medication regimen.- Reinforce the importance of avoiding recreational drug use due to potential neurotoxicity and interactions with prescribed medications. 07/11/2024 Nicotine use (ICD-10 - Z72.0) 1. depression - Educated and discuss Vraylar 3 mg daily in am for depression- samples been using tolerating well and helping depression refer to therapy for depression and anxiety- son passed 05/23 co-pay card given educated on all medications, benefits, side effects and risk, and educated on depression, anxiety, and mood d/o and educated on compliance of medications, metabolic and movement d/o education appointment's, continue therapy discussion with patient about course of treatmentand patient instructions. SSRI/SNRI side effects discussed including but not limited to, gastric upset, nausea, vomiting, diarrhea and/or constipation, weight changes, sexual side effects including loss of libido, increased suicidal thoughts/behaviors in children and young adults, and serotonin syndrome. Second generation antipsychotics (SGAs) have metabolic syndrome issues with weight gain, increase in prolactin, increased waist circumference, increased lipids, and increased glucose. Thus routine monitoring of weight, metabolic labs, etc. is indicated. A general rank ordering of antipsychotics that have the greatest to the least risk of metabolic effects is olanzapine, quetiapine, risperidone, ziprasidone, and aripiprazole. However, weight gain can occur with all of these drugs and considerable variability exists among patients receiving the same drug regarding the risk of metabolic effects. Anti-psychotic agents not only increase the risk of metabolic disorder, they also increase the risk of CVA, akathisia, and movement disorders including EPS or tardive dyskinesia (more common with first generation antipsychotics) and more. obtain labs PCP 2. Generalized anxiety disorder -trintellix 20 mg daily PCP prescribes hx Ativan and no control substance prescribed by [facility] related to cannabis use - patient reported stopped Cannabis Ativan 0.5 mg as needed daily educated on short term use - reported not using often local pharmacy in [place] and no early refills on control substance Discussed and educated pt regarding benzodiazepines are generally not intended for prolonged use and that use can cause tolerance, dependence, depression, and associated memory issues including dementias (this list is not exhaustive). Benzodiazepine use is generally not recommended concurrently with pain medications and/or other controlled substances due to increased risks of profound sedation, respiratory depression, coma, and even . They are not to be used with any alcohol, as this combination can also be lethal. Patient was provided caution educated on Propranolol and Clonidine for anxiety educated on all rx Web Assistant's license form completed 3. Insomnia -sleep hygiene limit caffeine reported not taking Trazodone often 4. Long-term drug therapy Patient Instructions Medication Management and Follow-Up- Plan:- Schedule follow-up appointments every 2-3 months to monitor the patient's response to the medication regimen.- Reinforce the importance of avoiding recreational drug use due to potential neurotoxicity and interactions with prescribed medications. Plan Of Treatment No Information Insurance Providers Payer Name Payer Address Payer Phone Subscriber Number Group Number Insured Name Patient Relationship to Insured Coverage Start Date Coverage End Date [facility] [address] [address] [place] [address] [phone] [id number] KALI MAY Self - patient is the insured Medical (General) History Medical History History ICD Code Problems: Alcohol dependence Cannabis dependence with current use Electronic cigarette user Generalized anxiety disorder Insomnia Long-term drug therapy Moderate recurrent major depression Nausea Nicotine dependence Nondependent alcohol abuse, unspecified Recurrent major depressive episodes, mil d Severe recurrent major depression with p sychotic features Weight gain , Surgical History Surgery Date(Month/Year) Endometrial ablation (06163) 04/01/2006 Other 04/01/2006
--- OUTSIDE RECORDS SUMMARY | 2024-10-16 06:55 | XMS_ITS ---
Author Organization [facility] [place] Address [facility] [facility] [address] [facility] [address] [place] [address] Care Team Providers Care It Project Lead Name Role Phone Amie Linares Primary Care Provider Breanna Pearson Unavailable [phone] REASON FOR VISIT Follow Up Social History Sex Assigned At : Social History Observation Description Sex Assigned At Female Encounters Encounter Location Date Provider Diagnosis [facility] [address] [facility] [address] [place] [address] 10/05/2024 Breanna Cali Plan Of Treatment No Information Progress Notes * KALI MAYDOB: [birth year] (58 yo F)Acc No.[id number]:10/05/2024 Patient: KALI MCCLELLAND Provider: ELIANE BUTTERFIELD :1965 A ge:58 Y S ex:Female Date:10/05/2024 Address:[address] [place], [place] [id number] Pcp:Amie HARRELL Subjective: * Chief Complaints: * 1 . Follow Up. * Medical History: Objective: * Vitals: Assessment: Plan: * Treatment: * Billing Information: * Visit Code: * Procedure Codes: * Electronic signature of ELIANE Mcbride on 10/16/2024 at 06:55 AM CDT Sign off status: Pending * Provider: ELIANE BUTTERFIELD Date: 0 10/05/2024 Generated for Kwan candelaria/Lucy/David on: 0 10/16/2024 06:55 AM CDT
--- OUTSIDE RECORDS SUMMARY | 2024-10-16 06:56 | XMS_ITS | Continuity of Care Document ---
Author Organization [facility] Address [address] [facility] [place] [address] Phone Care Team Providers [employer] Attendant Name Role Phone Bharat Ramos MD Unavailable Unavailable Allergies, Adverse Reactions, Alerts Substance Reaction Status Criticality No Known Allergies Active No Inform ation Medications Medication Instructions Dosage Effective Dates (start - stop) Status Comments Prozac 40 mg capsule take 1 capsule by oral route every day in the morning - Active Abilify 15 mg tablet take 1 tablet by oral route every day 15 MG - Active Crestor 40 mg tablet take 1 tablet by oral route every day 40 MG - Active fenofibrate 160 mg tablet take 1 tablet by oral route every day 160 MG - Active diclofenac sodium 50 mg tablet,delayed release take 1 tablet by oral route 2 times every day 50 MG - Active Lyrica 50 mg capsule take 1 capsule by oral route every day at bedtime - Active avoid driving or operate machines lorazepam 0.5 mg tablet take 1 Tablet by oral route 2 times every day as needed as needed 0.5 MG - Active Procedures Procedure Date OFFICE/OUTPATIENT VISIT, EST OFFICE/OUTPATIENT VISIT, EST OFFICE/OUTPATIENT VISIT, EST PREV VISIT, NEW, AGE 40-64 OFFICE/OUTPATIENT VISIT, NEW Advance Directives Directive Yes / No Effective Date File Name No Information Encounters Encounter Description Practice Location Reason(s) For Visit Diagnoses Date Provider Providers Copied on Encounter [facility], [address], [place], [id number], [place] tel:[phone] [facility] No Information Richard Nicholson. [address], [address], [place], [place], [address] , [place]. tel:[phone] Referring Provider: Mora Coffman [facility], [place], [place], [id number]. tel:[phone] OFFICE/OUTPA TIENT VISIT, [facility], [address] [place], [id number], [place] tel:[phone] [facility] anxiety1 (chief complaint) HLP (chief complaint) glucose1 (chief complaint) anxiety1 (chief complaint) HyperlipidemiaHypot hyroidismGeneralize d Anxiety DisorderHyperglycem ia Richard Nicholson. [address], [place], [place], [id number] , [place]. tel:[phone] Referring Provider: Mora Coffman [facility] [place], [id number]. tel:[phone] OFFICE/OUTPA TIENT VISIT, [facility], [address] [place], [id number], [place] tel:[phone] [facility] HLP (chief complaint) thyroid1 (chief complaint) back pain1 (chief complaint) anxiety1 (chief complaint) HyperlipidemiaHyper glycemiaHypothyroid ismGeneralized Anxiety DisorderChronic pain syndrome 9 Richard Nihcolson. [address], [facility], [place], [place], [id number] , [place]. tel:[phone] Referring Provider: Mora Coffman [facility], [place], [place], [id number]. tel:[phone] OFFICE/OUTPA TIENT VISIT, [facility], [address] [place], [address], [place] tel:[phone] [facility] HLP (chief complaint) glucose1 (chief complaint) chronic pian1 (chief complaint) low D (chief complaint) HyperglycemiaHyperl ipidemiaVitamin D deficiency, unspecifiedParesthe mell of skinTobacco use 9 Richard Nicholson. [address], [facility] [place], [address] , . tel:[phone] Referring Provider: Mora Coffman [address], [place], [place], [address]. tel:[phone] PREV VISIT, NEW, AGE 40-64 [facility], [address], [place], [place], [address], [place] tel:[phone] [facility] PHysical (chief complaint) Encounter for general adult medical exam w abnormal findingsHyperlipide miaParesthesia of skinGeneralized Anxiety Disorder 9 Richard Nicholson. [address], [place], [place], [id number] , . tel:[phone] Referring Provider: Mora Coffman [address] [place], [id number]. tel:[phone] Family History Family Member Type Diagnosis Age At Onset Father Problem (finding) Coronary artery disease 65 Father Problem (finding) colon CA 55 Mother Problem (finding) RA Brother Problem (finding) Alive and well Payers Payer name Insurance type Covered constitution party ID Authoriza tion(s) No Information Social History Type Description Quantity Date Captured Comments Alcohol Use Details Unknown Caffeine Use Details Unknown Tobacco Use Status Smoking Status No Information Sex Female Chief Complaint And Reason For Visit No Information Plan Of Treatment Date Type Action Status Goal Tobacco cessation counseling completed Goal Special diet education compl eted Goal Tobacco cessation counseling completed Goal Special diet education compl eted Goal Special diet education compl eted Goal Tobacco cessation counseling completed Referral Ordered: Pain Medicine (related to Paresthesia of skin) ordered Referral Ordered: CHEST X-RAY PA/LAT TWO-VIEWS ordered Referral Ordered: Referrals: Pain Medicine. Evaluate and treat ordered History Of Present Illness Encounter Date Complaint History Of Prese nt Illness anxiety1 Pt has anxiety a nd depression. Pt diong better. Pt needs FMLA form. pt has teodoro with psychiatrist tomorrow HLP Pt has HLP Pt ta kes crestor and feno. Her lipid profile is much better. Her TG is borderline high. Her TC is ok Pt denies any myalgia glucose1 Her glucose is o k ,Her A1c is borderline high Pt denies any polyuria polydipsia anxiety1 Pt has severe an xiety and depression Pt has crying spells Pt is taking prozac and abilify and she feels slightly better. Pt needs FMLA form completed Pt states that she is unable to focus at work due to her depression and anxiety Pt has crying spells Pt has teodoro with psychiatrist next week. Pt denies any suicidal or homicidal thought thyroid1 Pt states that s he used to takes synthroid 137 mcg long time ago. but she has not been taking synthroid for over one year. pt was told by [facility] doctor that her TSH was ok without synthroid so she does not have to take it anymore. HLP Pt has HLp Pt ta kes crestor and feno Pt denies any myalgia pt has not done lab yet back pain1 Pt denies any ba ck pain with lyrica and also diclofenac. Pt was started on lyrica and diclofenac by pain management. Her MRI Of L spine showed stenosis with some DDD. Pt did not receive shot Pt states that leg numbness and tinging resolved also. Pt does not want to see pain management anymore anxiety1 Pt has anxiety a nd depression, Pt has panic attacks. pt has worsening depression with frequently crying spells. Pt is on paxil, Pt is on low dose abilify and ativan Pt missed her psychiatrist teodoro and she could not get it until December. Pt states that she has been on paxil for long time and she does not think it helps anymore Pt has mood swings and frequent crying spells. Pt states that her children are causing her severe stress at home. Pt denies any suicidal or homicidal thought HLP Pt has HLP ,Pt s upposes to take feno and crestor but she skips dose frequently. Pt has HLP ,Pt denies any myalgia Pt does not eat very healthy glucose1 Pt has mildly hi gh glucose, Pt denies any polyuria, polydipsia. chronic pian1 Pt has chronic l ow back pain with left sciatica and left leg numbness and tinging. Pt denies any loss of bladder control. Pt states that neurontin at night does help Pt denies any dizziness with neurontin. Pt has teodoro with pain management in two weeks low D Pt has low D PHysical Pt needs annual physical. Pt has anxiety and depression and she takes paxil and abilify and ativan PRn. Pt sees psychiatrist. Pt does not have any bipolar. Pt states that abilify is for depression. Pt has HLP Pt takes feno and crestor. pt denies any myalgia. Pt has chronic low back pain with left sciatica for over one year Pt denies any injury Pt denies any loss of bladder control PT denies any calf pain Pt c/o sharp pain and numbness and tingling down to left leg from left hip to her left foot. Pt feels slightly weakness left leg. Pt did two lumbar injection and some oral steroid with PT and she does not feel any improvement of her pain Pt denies any loss of bladder control Pt also is seeing chiropractor for adjustment without any improvement. Instructions Date Instruction Additional Infor ishan Follow a low sodium diet. Relate d to Hyperlipidemia Increase activity. Related to Hy perlipidemia Special diet education Related t o Body mass index (BMI) 34.0-34.9, adult Quit smoking Related to Hyper glycemia Special diet education Related t o Body mass index (BMI) 35.0-35.9, adult Quit smoking Related to Encou nter for general adult medical exam w abnormal findings Weight management Related to Enc ounter for general adult medical exam w abnormal findings Increase physical activity Relat ed to Encounter for general adult medical exam w abnormal findings Special diet education Related t o Body mass index (BMI) 36.0-36.9, adult Assessments Type Assessment Date No Information
[2024-10-16 07:35] LABS: Hematocrit 43.8 % (37.0-47.0); Hemoglobin 13.9 g/dL (12.0-15.0); Immature Granulocyte Percent A 0.7 % (0-0.5); Lymphocytes Absolute Auto 2.80 K/mm3 (0.9-3.2); Mean Corpuscular HGB Conc 31.7 g/dl (32-36); Mean Corpuscular Hemoglobin 28.3 pg (26-34); Mean Corpuscular Volume 89.2 fl (80-100); Nucleated Red Blood Cells Absolute Auto 0.000 K/mm3 (0.0-0.012); Nucleated Red Blood Cells Perc 0.0 % (0.0-0.2); Platelet Count Result 319 k/mm3 (150-375); Red Blood Count 4.91 M/mm3 (4.2-5.4); White Blood Count 8.5 K/mm3 (4.5-10.0)
[2024-10-16 07:48] LABS: Hemoglobin A1C 5.7 % (<5.7)
[2024-10-16 07:56] LABS: Alanine Aminotransferase 17 U/L (6-35); Albumin Level 4.2 g/dL (3.5-5.1); Alkaline Phosphatase 82 U/L (38-126); Anion Gap 8 mmol/L (4-12); Aspartate Amino Transferase 27 U/L (14-36); Bilirubin,Total 0.6 mg/dL (0.2-1.3); Blood Urea Nitrogen 7 mg/dL (7-17); Calcium 9.7 mg/dL (8.4-10.2); Carbon Dioxide 26 mmol/L (22-30); Chloride 106 mmol/L (98-107); Cholesterol 266 mg/dL (0-200); Estimated Glomerular Filt Rate > 60; Glucose 93 mg/dL (65-110); HDL Direct 48 mg/dL; Iron 64 ug/dL (37-170); Potassium 4.1 mmol/L (3.4-5.0); Sodium 140 mmol/L (137-145); Total Protein 7.3 g/dL (6.3-8.2); Triglycerides 225 mg/dL (<150)
[2024-10-16 08:11] LABS: Percent Iron Saturation 20 % (20-50)
[2024-10-16 08:39] LABS: Ferritin 72.90 ng/mL (11.1-264)
[2024-10-16 09:06] LABS: Vitamin B12 404.0 pg/mL (239-931)
== END 2024-10-16 06:51 | disposition home or self-care (01) ==
LOC: ANHLAB 06:53
PROVIDERS: PCP Physician Assistant; Visit Provider Physician Assistant
DX: E78.5 Hyperlipidemia, unspecified (principal); R73.03 Prediabetes; R53.82 Chronic fatigue, unspecified; Z79.899 Other long term (current) drug therapy
CPT/HCPCS: 36415; 80053; 80061; 82306; 82607; 82728; 82746; 83036; 83540; 83550; 85025